=== PATIENT | female | born 1965 | race Caucasian/White ===

== ENCOUNTER 2017-04-07 16:49 | Emergency (ER) | payer BC ==
[~2017-04-07 16:49] MED LIST: ACET500CAP PO; ALLEGRA180 PO; AMB10 PO; AMIT100 PO; AMIT50 PO; AMIT75 PO; APRISO0.375 GM PO; AUG500 PO; AZASAN100 MG PO; B121000P IM; BENTYL20 PO; CALTRA600D PO; CIMZIA SC; CITRACAL PO; COMP10B PO; CYMBALTA60 PO; DHE1 OR; DHEA25 MG OR; FISH-EPA1000 MG PO; FLAG500TAB PO; FOLIC ACID400 MC1 PO; FOLIC PO; HORMONE TROCHE SL; IMITREX100 MG PO; IMOD PO; IMU PO; K-TABS10 MEQ PO; KLOR-CON 1010 MEQ PO; KLOR-CON M2020 MEQ PO; L40 PO; LEVAQUIN750 MG PO; LEVOTHYROXIN50 MCG PO; LIOR10 PO; LOM PO; LORTAB10 PO; LYRICA150 MG PO; LYRICA300 MG PO; MULTIPLE VIT PO; NEXIUM40 PO; NORCO1 TA2 PO; NORCO1 TAB PO; OMEGA 3,6,9; P10 PO; PENTASA500 MG PO; PERCOCET 10/3251 TAB PO; PERCOCET1 TA2 PO; PHEN50TAB PO; PR25 PO; PRIN10 PO; PROTONIX PO; PROVHFA INH; REQUIP4 MG PO; SAVELLA50 MG PO; SEROQUEL400 MG PO; STERAPRED DS10 MG; SUDOGEST60 MG OR; SYN.05 PO; TESSALON200 MG PO; TOPAMAX100 PO; VAGIFEM10 MCG VA; VIST25 PO; VITAMIN D1000 UNI1 PO; VITAMIN D31000 UNIT PO; XANAX1 MG PO; XANAX2 MG PO; XOPENEX0.63 MG INH; XOPENEX1.25 MG/3 INH; ZESTORETIC1 TAB PO; ZOFRAN4 PO; ZOFRAN8 PO; ZYRTEC ALLGY10 MG PO; [UNRECOGNIZED DRUG - OTHER] OR; [UNRECOGNIZED DRUG - REMARK] PO
[2017-04-07 17:34] LABS: BASOPHILS 0.4 %; BASOPHILS ABSOLUTE 0.02 10/3/uL (0.0-0.16); EOSINOPHILS 1.5 %; EOSINOPHILS ABSOLUTE 0.08 10/3/uL (0.0-0.53); HEMATOCRIT 39.7 % (36.0-48.0); HEMOGLOBIN 12.9 g/dL (12.0-16.0); IMMATURE GRANULOCYTES 0.2 %; IMMATURE GRANULOCYTES ABSOLUTE 0.01 10/3/uL (0.0-0.11); LYMPHOCYTES 39.4 %; LYMPHOCYTES ABSOLUTE 2.05 10/3/uL (0.67-4.30); MANUAL DIFF NO %; MEAN CORPUS HGB CONC 32.5 g/dL (32.0-36.0); MEAN CORPUSCULAR HEMOGLOB 34.4 pg (26.0-34.0); MEAN CORPUSCULAR VOLUME 105.9 fL (80-100); MEAN PLATELET VOLUME 11.6 fL (9.2-13.0); MONOCYTES 14.6 %; MONOCYTES ABSOLUTE 0.76 10/3/uL (0.21-1.20); NEUTROPHILS 43.9 %; NEUTROPHILS ABSOLUTE 2.28 10/3/uL (2.02-8.40); PLATELET COUNT 194 10/3/uL (150-400); RBC DISTRIBUTION WIDTH 13.6 % (12.0-16.0); RED CELL COUNT 3.75 10/6/uL (4.0-5.6); WHITE BLOOD CELLS 5.2 10/3/uL (4.5-10.5)
[2017-04-07 17:41] LABS: PARTIAL THROMBO TIME 35.3 SEC (22.5-37.2)
[2017-04-07 17:51] LABS: BUN (BLOOD UREA NITROGEN) 14 MG/DL (6-23); CALCIUM, SERUM 8.2 MG/DL (8.5-10.4); CHEST PAIN PROFILE TAT 0 Hrs 23 Mins; CHLORIDE, SERUM 110 MMOL/L (96-112); CO2 (CARBON DIOXIDE) 29 MMOL/L (24-34); CREATININE 1.14 MG/DL (0.55-1.02); GFR AFRICAN AMERICAN 65 ML/MIN (>=60); GFR NON AFRICAN AMERICAN 56 ML/MIN (>=60); GLUCOSE, SERUM 84 MG/DL (60-99); POTASSIUM, SERUM 3.7 MMOL/L (3.5-5.3); SODIUM, SERUM 144 MMOL/L (135-148); TROPONIN I <0.02 NG/ML (<0.05)
[2017-05-15] MEDS ORDERED: SYMBICORT 160/41 INH INH (08:44)
[2017-05-15] MEDS ORDERED: VENTOLIN HFA INH (08:45)
[2017-05-15] MEDS ORDERED: IMU PO (08:46)
== END 2017-04-07 22:49 | disposition home or self-care (01) ==
LOC: ER 16:49
PROVIDERS: Emergency Medicine
DX: J06.9 Acute upper respiratory infection, unspecified (principal); I10 Essential (primary) hypertension; G47.30 Sleep apnea, unspecified; K21.9 Gastro-esophageal reflux disease without esophagitis; F31.9 Bipolar disorder, unspecified; F41.9 Anxiety disorder, unspecified; D64.9 Anemia, unspecified; Z87.442 Personal history of urinary calculi; Z88.2 Allergy status to sulfonamides; Z91.048 Other nonmedicinal substance allergy status; Z79.899 Other long term (current) drug therapy
CPT/HCPCS: 71020; 80048; 83735; 84484; 85025; 85610; 85730; 93005; 96372; 99285